=== PATIENT | female | born 1980 | race Hispanic/Latino ===

== ENCOUNTER 2024-04-30 09:14 | Emergency (ER) | payer SELFPAY ==
[2024-04-30 09:23] VITALS: BP 123/80
[2024-04-30 09:52] LABS: % Basophils 0.2 % (0-2); % Eosinophils 0.2 % (0-6); % Immature Granulocytes 1.4 % (0-0.5); % Lymphocytes 9.2 % (20.5-51.1); % Monocytes 10.7 % (1.7-9.3); % Neutrophils 78.3 % (42.2-75.2); Absolute Immature Granulocytes 0.1 10^3/uL (0-0.05); Absolute Lymphocytes 0.8 10^3/uL (1.2-3.4); Absolute Monocytes 0.9 10^3/uL (0.1-0.6); Absolute Neutrophils 6.8 10^3/uL (1.4-6.5); Hematocrit 34.1 % (37.0-47.0); Hemoglobin 10.5 g/dL (12.0-16.0); Mean Corp Hgb Conc. 30.8 g/dL (33.0-37.0); Mean Corpuscular Hgb 21.5 pg (27.0-31.0); Mean Corpuscular Volume 69.9 fL (81.0-99.0); Nucleated Red Blood Cells % 0 %; Red Blood Cell Count 4.88 10^6/uL (4.20-5.40); Red Cell Dist. Width 24.4 % (11.5-14.5); White Blood Cell Count 8.6 10^3/uL (4.8-10.8)
[2024-04-30 10:04] LABS: ALT (SGPT) 38 U/L (0-35); AST (SGOT) 49 U/L (14-36); Albumin 3.6 g/dl (3.5-5.0); Alkaline Phosphatase 235 U/L (38-126); Blood Urea Nitrogen 11 mg/dl (7-17); Calcium 8.7 mg/dl (8.4-10.2); Carbon Dioxide 23 mmol/L (22-30); Chloride 105 mmol/L (98-107); Glucose 114 mg/dl (70-99); Potassium 4.4 mmol/L (3.5-5.1); Sodium 137 mmol/L (135-145); Total Bilirubin 1.1 mg/dl (0.2-1.3); Total Protein 7.5 g/dl (6.3-8.2); eGFR > 60.00
[2024-04-30 11:13] LABS: Platelet Count 194 10^3/uL (130-400)
[2024-04-30 11:15] LABS: Normal RBC Morphology No
[2024-04-30 11:16] LABS: Hypochromasia Slight; Microcytosis FEW; Ovalocytes FEW
--- NOTE | 2024-04-30 11:47 | ED.GENMED ---
History of Present Illness
<Jazmine Griggs PA-C - Last Filed: 04/30/24 18:58>
General
Chief Complaint: Back Pain
Source: patient
Exam Limitations: none
Time Seen by Provider: 04/30/24 11:46
Nursing documentation reviewed up to this point in time: agreed with
Travel History
Have you had any contact with someone who has COVID-19?: No
Do you have any symptoms of coronavirus? Fever > 100 degrees, chills, cough, shortness of breath, sore throat, loss of taste or smell, muscle aches, or headache?: No
History of Present Illness
History of Present Illness:
43-year-old female with a past medical history of stroke, blood clot presenting to the emergency department today with concerns of back pain and left leg pain. Completion Supervisor present in room via language line. Patient states that her back pain started
a week ago. She notes that the back pain is in the middle of lower portion in her back, is worse with movement. Patient denies any history of trauma. Patient states that when she walks around, she feels weak because the pain makes her short of
breath. Patient denies any chest pain, shortness of breath at rest. Patient also notes left leg pain and left numbness. Patient reports that her left leg numbness is a result of her stroke she had back in November. Patient does have she said a
blood clot which they told her about during last hospitalization in her leg, and she says she has pain from the but she has not been on any medication for it due to moving states and not having insurance at the time.
Review of Systems
<Jazmine Griggs PA-C - Last Filed: 04/30/24 18:58>
Review of Systems
All Other Systems: ROS reviewed and negative except as documented in HPI and ROS
Phy Exam
<Jazmine Griggs PA-C - Last Filed: 04/30/24 18:58>
Physical Exam
Physical Exam:
General: Patient is well appearing and in no acute distress; non-toxic
Skin: Warm and dry, no rashes or lesions
Head: Normocephalic, atraumatic
Eyes: Sclera non-icteric. EOMs intact. PERRLA.
Cardiac: Regular rate and rhythm, no murmurs
Peripheral Vascular: No lower extremity swelling or edema bilaterally, no lower extremity erythema. Left calf tenderness to palpation. Negative Homans' sign bilaterally.
Pulm: Normal respiratory effort
Musculoskeletal: Tenderness to palpation in the upper thoracic to lower lumbar spine and tenderness palpation of the paraspinal muscles. Pain with range of motion of thoracic and lumbar spine. No palpable deformities.
Neuro: CN II-XII intact, no focal neurologic deficits.
Psychiatric: Appropriate mood and affect.
Course
Garricklt;Jazmine Griggs PA-C - Last Filed: 04/30/24 18:58>
Orders/Labs/Results
Orders:
Orders
04/30/24 09:24
ECG [Electrocardiogram (*1)] Urgent
Reason for Study: Tachycardia
04/30/24 09:25
EKG- Treatment ONCE
04/30/24 09:30
Complete Blood Count/With Diff Urgent
Comprehensive Metabolic Panel Urgent
04/30/24 12:21
US Periph Venous LOWER Ext LT Urgent
Comment:
Reason For Exam: left leg pain, known blood clot
04/30/24 12:36
Ibuprofen [Motrin] 600 mg PO NOW STA
04/30/24 15:17
Ibuprofen [Motrin] 600 mg PO NOW STA
Abnormal Lab Results
04/30/24
09:30
Hgb 10.5 L g/dL
(12.0-16.0)
Hct 34.1 L %
(37.0-47.0)
MCV 69.9 L fL
(81.0-99.0)
MCH 21.5 L pg
(27.0-31.0)
MCHC 30.8 L g/dL
(33.0-37.0)
RDW 24.4 H %
(11.5-14.5)
Abs Immat Gran (auto) 0.1 H 10^3/uL
(0-0.05)
Absolute Neuts (auto) 6.8 H 10^3/uL
(1.4-6.5)
Absolute Lymphs (auto) 0.8 L 10^3/uL
(1.2-3.4)
Absolute Monos (auto) 0.9 H 10^3/uL
(0.1-0.6)
Immature Gran % 1.4 H %
(0-0.5)
Neutrophils % 78.3 H %
(42.2-75.2)
Lymphocytes % 9.2 L %
(20.5-51.1)
Monocytes % 10.7 H %
(1.7-9.3)
Glucose 114 H mg/dl
(70-99)
AST 49 H U/L
(14-36)
ALT 38 H U/L
(0-35)
Alkaline Phosphatase 235 H U/L
(38-126)
04/30/24 09:30
04/30/24 09:30
Vital Signs
Initial and Last Documented VS:
Initial Vital Signs
Temp Pulse Resp BP Pulse Ox
99.2 F 101 20 123/80 97
04/30/24 09:23 04/30/24 09:23 04/30/24 09:23 04/30/24 09:23 04/30/24 09:23
Last Documented Vital Signs
Temp Pulse Resp BP Pulse Ox
99.2 F 80 20 116/80 97
04/30/24 09:23 04/30/24 15:37 04/30/24 09:23 04/30/24 15:37 04/30/24 09:23
<Man Yanes MD - Last Filed: 04/30/24 12:47>
Orders/Labs/Results
Orders:
Orders
04/30/24 09:24
ECG [Electrocardiogram (*1)] Urgent
Reason for Study: Tachycardia
04/30/24 09:25
EKG- Treatment ONCE
04/30/24 09:30
Complete Blood Count/With Diff Urgent
Comprehensive Metabolic Panel Urgent
04/30/24 12:21
US Periph Venous LOWER Ext LT Urgent
Comment:
Reason For Exam: left leg pain, known blood clot
04/30/24 12:36
Ibuprofen [Motrin] 600 mg PO NOW STA
04/30/24 15:17
Ibuprofen [Motrin] 600 mg PO NOW STA
Abnormal Lab Results
04/30/24
09:30
Hgb 10.5 L g/dL
(12.0-16.0)
Hct 34.1 L %
(37.0-47.0)
MCV 69.9 L fL
(81.0-99.0)
MCH 21.5 L pg
(27.0-31.0)
MCHC 30.8 L g/dL
(33.0-37.0)
RDW 24.4 H %
(11.5-14.5)
Abs Immat Gran (auto) 0.1 H 10^3/uL
(0-0.05)
Absolute Neuts (auto) 6.8 H 10^3/uL
(1.4-6.5)
Absolute Lymphs (auto) 0.8 L 10^3/uL
(1.2-3.4)
Absolute Monos (auto) 0.9 H 10^3/uL
(0.1-0.6)
Immature Gran % 1.4 H %
(0-0.5)
Neutrophils % 78.3 H %
(42.2-75.2)
Lymphocytes % 9.2 L %
(20.5-51.1)
Monocytes % 10.7 H %
(1.7-9.3)
Glucose 114 H mg/dl
(70-99)
AST 49 H U/L
(14-36)
ALT 38 H U/L
(0-35)
Alkaline Phosphatase 235 H U/L
(38-126)
04/30/24 09:30
04/30/24 09:30
Vital Signs
Initial and Last Documented VS:
Initial Vital Signs
Temp Pulse Resp BP Pulse Ox
99.2 F 101 20 123/80 97
04/30/24 09:23 04/30/24 09:23 04/30/24 09:23 04/30/24 09:23 04/30/24 09:23
Last Documented Vital Signs
Temp Pulse Resp BP Pulse Ox
99.2 F 80 20 116/80 97
04/30/24 09:23 04/30/24 15:37 04/30/24 09:23 04/30/24 15:37 04/30/24 09:23
<Jazmine Griggs PA-C - Last Filed: 04/30/24 18:58>
MDM/Problems Addressed
Differential Diagnosis Includes:
Differentials include herniated nucleus pulposus, lumbar muscular sprain/strain, DVT, degenerative disc disease
MDM/Problems Addressed:
Left leg pain, middle back pain
Chronic conditions affecting care:
hx of stroke
Acute Exacerbation and/or Progression of Chronic Illness:
n/a
<TEMO Jaime Last Filed: 04/30/24 18:58>
*Pulse Oximetry
Patient hypoxic: no
*Critical Care Note
Total Time (30-74mins, 75-104mins- exclusive of procedures): Not Applicable
Data Reviewed
Review of Other/Old Records Reveals: Records (No previous ER physician documentation to review) and Discharge Summary (no discharge summaries to review)
Source: patient and records
Further Testing Considered But Not Given:
Considered plain films of the spine however patient has no trauma, no history of arthritis, no fevers or chills
<Jazmine Griggs PA-C - Last Filed: 04/30/24 18:58>
Patient Management
Escalation/DeEscalation of care consider admission/obs:
43-year-old female with a past medical history of stroke, blood clot presenting to the emergency department today with concerns of back pain and left leg pain. Completion Supervisor present in room via language line. Patient states that her back pain started
a week ago. Patient not treated for the blood clot however here in emergency department, her DVT study of the left lower extremity was negative. History and physical exam consistent with musculoskeletal back pain, return precautions discussed and
given. Patient given ibuprofen here for pain. Will trial muscle relaxant. Patient not have a PCP, I gave her information to the PCP hotline to set up follow-up. Patient aware. Patient states that she did have a stroke in November, we did attempt
to obtain these records from his hospital stay, however known responded and they said it would take multiple business days to obtain these records patient stable for discharge.
ED Attending Note
<Jazmine Griggs PA-C - Last Filed: 04/30/24 18:58>
-
Portions of this chart may have been created with voice recognition software.� Occasional wrong word or��sound alike� substitutions may have occurred due to the inherent limitations of voice recognition software.
<Man Yanes MD - Last Filed: 04/30/24 12:47>
ED Attending Note
Patient seen and examined by attending physician: Yes
I performed the substantive portion of visit, reviewed & personally made and approve the management plan that is documented in note by myself or MARIELA.: Yes
ED Attending Note:
Mid back pain for about a month. Positional in nature. Worse with twisting turning bending. No pleuritic pain or shortness of breath. History of questionable CVA in the past and questionable DVT in the leg. Supposed to be on medications but she
is not taking them.
On exam patient is nontoxic in no distress. She is able to stand without difficulty she notes some increased pain with twisting turning and bending. She points to the middle thoracic area as the location of her pain. No erythema or warmth. Good
lower extremity strength. No leg swelling cord or erythema.
We will get an ultrasound of the leg to confirm or rule out DVT. Back pain clinically is musculoskeletal. We will also try to get old records.
Discharge Plan
Departure
Patient Disposition: Home (Routine Discharge)
Date of Disposition: 04/30/24
Time of Disposition: 14:56
Patient with high blood pressure during this ER visit?: Yes
Condition: Good
Discharge Problem:
Back pain
Instructions: Back Pain, BLOOD PRESSURE
Prescriptions:
New
cyclobenzaprine 15 mg capsule,extended release 24hr
15 mg PO DAILY Qty: 7 0RF
Activity Restrictions/Additional Instructions:
Your ultrasound not show any evidence of a DVT of the left leg.
We have sent a muscle relaxant to your pharmacy. You can start this tonight. You can take one tablet once daily at bedtime.
For your headache, you can alternate Tylenol and Motrin for pain.
Please return emergency department should you develop chest pain, difficulty breathing, palpitations, syncopal episode, weakness, confusion, urinary or fecal incontience, numbness in the genital region, fevers or chills, or other concerning signs or
symptoms.
Interventions
Interventions:
*Risk Screen - Suicide Last Done: 04/30/24 15:35
*General Assessment Last Done: 04/30/24 15:35
*Neglect/Abuse Screening Last Done: 04/30/24 15:35
*Nursing Disposition Last Done: 04/30/24 15:37
ED-Musculoskeletal Assessment Last Done: 04/30/24 15:21
Discharge Date and Time
Discharge Date/Time: 04/30/24 15:37
Print Language: INDONESIAN
[2024-04-30] MEDS: MOTRIN 600 MG PO (15:20)
[2024-04-30 15:37] VITALS: BP 116/80
== END 2024-04-30 15:37 | disposition home or self-care (01) ==
LOC: EMR 09:14
PROVIDERS: EMERGENCY PHYSICIAN Emergency Medicine
DX: M54.9 Dorsalgia, unspecified (principal); Z86.718 Personal history of other venous thrombosis and embolism; Z86.73 Personal history of transient ischemic attack (TIA), and cerebral infarction without residual deficits
CPT/HCPCS: 99284; 80053; 85025; 93005; 93971

== ENCOUNTER → 2024-10-09 06:35 | Outpatient (REF) | payer OTHER, SELFPAY ==
[2024-10-09 09:07] LABS: ALT (SGPT) 27 U/L (0-35); AST (SGOT) 22 U/L (14-36); Albumin 4.4 g/dl (3.5-5.0); Alkaline Phosphatase 120 U/L (38-126); Direct Bilirubin 0.1 mg/dl (0.0-0.4); Total Bilirubin 0.9 mg/dl (0.2-1.3); Total Protein 7.2 g/dl (6.3-8.2)
== END ==
LOC: CLINIC 06:35
PROVIDERS: ATTENDING PHYSICIAN Nurse Practitioner Adult Health
DX: Z86.73 Personal history of transient ischemic attack (TIA), and cerebral infarction without residual deficits (principal)
CPT/HCPCS: 36415; 80076

== ENCOUNTER → 2025-01-14 10:08 | Outpatient (REF) | payer OTHER, SELFPAY | LOC: CLINIC 10:08 | PROVIDERS: ATTENDING PHYSICIAN Nurse Practitioner Adult Health | DX: M25.562 Pain in left knee (principal) | CPT/HCPCS: 73564; 73565 ==

== ENCOUNTER → 2025-08-18 06:25 | Outpatient (REF) | payer OTHER, SELFPAY ==
[2025-08-18 07:06] LABS: Hematocrit 30.9 % (37.0-47.0); Hemoglobin 9.4 g/dL (12.0-16.0); Mean Corp Hgb Conc. 30.4 g/dL (33.0-37.0); Mean Corpuscular Volume 72.7 fL (81.0-99.0); Platelet Count 333 10^3/uL (130-400); Red Cell Dist. Width 15.3 % (11.5-14.5)
[2025-08-18 07:29] LABS: ALT (SGPT) 19 U/L (0-35); AST (SGOT) 19 U/L (14-36); Albumin 3.9 g/dl (3.5-5.0); Alkaline Phosphatase 113 U/L (38-126); Blood Urea Nitrogen 10 mg/dl (7-17); Calcium 9.3 mg/dl (8.4-10.2); Carbon Dioxide 27 mmol/L (22-30); Chloride 105 mmol/L (98-107); Glucose 116 mg/dl (70-99); HDL Cholesterol 45 mg/dl; LDL Cholesterol, Calculated 92 mg/dl; Potassium 4.3 mmol/L (3.5-5.1); Sodium 138 mmol/L (135-145); Total Protein 6.9 g/dl (6.3-8.2); Very Low Density Lipoprotein 24 mg/dl (0-30); eGFR > 60.00
[2025-08-18 07:46] LABS: Vitamin D, 25-OH*** 30.7 ng/mL (30-80)
[2025-08-18 10:20] LABS: Glycohemoglobin (HgbA1c) 6.0 % (4.0-5.6)
== END ==
LOC: CLINIC 06:25
PROVIDERS: ATTENDING PHYSICIAN Nurse Practitioner Adult Health
DX: Z86.73 Personal history of transient ischemic attack (TIA), and cerebral infarction without residual deficits (principal); Z86.2 Personal history of diseases of the blood and blood-forming organs and certain disorders involving the immune mechanism; Z00.00 Encounter for general adult medical examination without abnormal findings
CPT/HCPCS: 36415; 80053; 80061; 82306; 83036; 84443; 85027